=== PATIENT | male | born 1945 | race Caucasian/White ===

== ENCOUNTER 2023-08-01 09:39 | Outpatient (CLI) | payer MEDICARE, BC ==
[~2023-08-01 09:39] MED LIST: iohexol 350 MG/ML 50ML vial IV ONE; iohexol 350MG/ML 100ml bottle IV ONE
[2023-08-01 10:31] LABS: ALBUMIN 3.6 G/DL (3.4-5.0); ANION GAP 11 (8-16); BLOOD UREA NITROGEN 15 MG/DL (7-18); BUN/CREATININE RATIO 16.5 (10.0-20.0); CALCIUM 8.1 MG/DL (8.5-10.1); CHLORIDE 107 MMOL/L (99-107); CREATININE 0.91 MG/DL (0.60-1.10); GLUCOSE 111 MG/DL (70-104); POTASSIUM 4.2 MMOL/L (3.5-5.1); SODIUM 142 MMOL/L (135-145); TOTAL CARBON DIOXIDE 24.1 MMOL/L (24-32); eGFR 81 ML/MIN
== END 2023-08-01 23:59 | disposition home or self-care (01) ==
LOC: RAD 09:39
PROVIDERS: ATTEND Internal Medicine Interventional Cardiology
DX: I65.23 Occlusion and stenosis of bilateral carotid arteries (principal); K76.0 Fatty (change of) liver, not elsewhere classified; N28.1 Cyst of kidney, acquired; K44.9 Diaphragmatic hernia without obstruction or gangrene; I70.0 Atherosclerosis of aorta; I10 Essential (primary) hypertension
CPT/HCPCS: 36415; 75635; 80048; J3490; Q9967

== ENCOUNTER 2023-10-05 12:30 | Outpatient (CLI) | payer MEDICARE, BC ==
[2023-10-05 13:28] LABS: ALANINE AMINOTRANSFERASE 33 U/L (12-78); ALBUMIN 3.4 G/DL (3.4-5.0); ALBUMIN/GLOBULIN RATIO 0.9 (1.1-1.5); ALKALINE PHOSPHATASE 67 IU/L (46-116); ANION GAP 10 (8-16); ASPARTATE AMINO TRANSFERASE 19 U/L (10-37); BILIRUBIN,TOTAL 0.3 MG/DL (0.1-1.0); BLOOD UREA NITROGEN 18 MG/DL (7-18); BUN/CREATININE RATIO 16.4 (10.0-20.0); CALCIUM 8.8 MG/DL (8.5-10.1); CHLORIDE 106 MMOL/L (99-107); GLUCOSE 114 MG/DL (70-104); POTASSIUM 4.2 MMOL/L (3.5-5.1); SODIUM 141 MMOL/L (135-145); TOTAL CARBON DIOXIDE 24.9 MMOL/L (24-32); TOTAL PROTEIN 7.1 G/DL (6.4-8.2); eGFR 65 ML/MIN
== END 2023-10-05 23:59 | disposition home or self-care (01) ==
LOC: LAB 12:30
PROVIDERS: ATTEND Family Medicine
DX: E78.5 Hyperlipidemia, unspecified (principal)
CPT/HCPCS: 36415; 80053

== ENCOUNTER → 2024-04-17 | Outpatient (CLI) | payer MEDICARE, BC ==
[2024-04-17 14:07] LABS: BASOPHILS % (AUTO) 0.5 % (0-1); EOSINOPHILS # (AUTO) 0.2 X10'3 (0-0.9); EOSINOPHILS % (AUTO) 2.7 % (0-6); HEMATOCRIT 35.2 % (42.0-52.0); HEMOGLOBIN 11.5 g/dl (14.0-17.9); LYMPHOCYTES # (AUTO) 2.4 X10'3 (1.1-4.8); LYMPHOCYTES % (AUTO) 31.6 % (21-51); MEAN CORPUSCULAR HEMOGLOBIN 29.7 PG (27.0-31.0); MEAN CORPUSCULAR HGB CONC 32.7 g/dL (33.0-36.5); MEAN CORPUSCULAR VOLUME 90.9 FL (78-98); MEAN PLATELET VOLUME 6.4 FL (7.4-10.4); MONOCYTES # (AUTO) 1.1 X10'3 (0-0.9); MONOCYTES % (AUTO) 14.3 % (2-12); NEUTROPHILS # (AUTO) 3.9 X10'3 (1.8-7.7); NEUTROPHILS % (AUTO) 50.9 % (42-75); PLATELET COUNT 294 X10'3 (140-440); RED BLOOD COUNT 3.87 X10'6 (4.70-6.10); RED CELL DISTRIBUTION WIDTH 14.2 % (11.5-14.5); WHITE BLOOD COUNT 7.6 X10'3 (4.5-11.0)
[2024-04-17 14:32] LABS: ALANINE AMINOTRANSFERASE 30 U/L (12-78); ALBUMIN 3.5 G/DL (3.4-5.0); ALKALINE PHOSPHATASE 65 IU/L (46-116); ANION GAP 11 (8-16); ASPARTATE AMINO TRANSFERASE 21 U/L (10-37); BILIRUBIN,TOTAL 0.7 MG/DL (0.1-1.0); BLOOD UREA NITROGEN 20 MG/DL (7-18); BUN/CREATININE RATIO 14.8 (10.0-20.0); CALCIUM 8.7 MG/DL (8.5-10.1); CHLORIDE 107 MMOL/L (99-107); CREATININE 1.35 MG/DL (0.60-1.10); GLUCOSE 113 MG/DL (70-104); POTASSIUM 4.1 MMOL/L (3.5-5.1); SODIUM 143 MMOL/L (135-145); TOTAL CARBON DIOXIDE 25.3 MMOL/L (24-32); TOTAL PROTEIN 6.9 G/DL (6.4-8.2); eGFR 51 ML/MIN
[2024-04-17 14:42] LABS: THYROID STIMULATING HORMONE 2.19 ulU/ml (0.34-4.50)
[2024-04-19 11:14] LABS: THYROXINE (T4) 10.5 ug/dL (4.5-12.0)
== END | disposition home or self-care (01) ==
LOC: RAD 13:32
PROVIDERS: ATTEND Student in an Organized Health Care Education/Training Program
DX: R06.02 Shortness of breath (principal); G47.33 Obstructive sleep apnea (adult) (pediatric); J30.9 Allergic rhinitis, unspecified; E78.5 Hyperlipidemia, unspecified
CPT/HCPCS: 36415; 80053; 82103; 84436; 84443; 85025

== ENCOUNTER 2024-06-01 14:08 | Outpatient (CLI) | payer MEDICARE, BC ==
[2024-06-01 15:55] VITALS: PULSE 102; RESP 18; O2SAT 96
== END 2024-06-01 23:59 | disposition home or self-care (01) ==
LOC: RT 14:08
PROVIDERS: ATTEND Student in an Organized Health Care Education/Training Program
DX: J44.9 Chronic obstructive pulmonary disease, unspecified (principal)
CPT/HCPCS: 94010; 94729; 94760

== ENCOUNTER → 2024-10-26 | Outpatient (CLI) | payer MEDICARE, BC ==
[~2024-10-26] MED LIST changes: +ALBU8HFA INH; +APIX5TAB3 PO; +ASPI-1397 PO; +CARSR60C PO; +FLUT16SP26; +GUAI600T45 PO; +PANT40TA54 PO; +PRED20TA PO; +PRED50TA PO; +ROSU10TA72 PO; +ROSU40TA PO; +SALM50DI2 INH; +TIOT4MIS8; -iohexol 350 MG/ML 50ML vial IV ONE; -iohexol 350MG/ML 100ml bottle IV ONE
[2024-10-26 11:40] LABS: ALANINE AMINOTRANSFERASE 20 U/L (12-78); ALBUMIN 3.4 G/DL (3.4-5.0); ALBUMIN/GLOBULIN RATIO 1.1 (1.1-1.5); ALKALINE PHOSPHATASE 82 IU/L (46-116); ANION GAP 12 (8-16); ASPARTATE AMINO TRANSFERASE 20 U/L (10-37); BILIRUBIN,TOTAL 1.2 MG/DL (0.1-1.0); BLOOD UREA NITROGEN 33 MG/DL (7-18); CALCIUM 8.6 MG/DL (8.5-10.1); CHLORIDE 108 MMOL/L (99-107); CHOL/HDL RATIO 2.2 (0.00-4.99); CHOLESTEROL 102 MG/DL (0-200); CREATININE 1.83 MG/DL (0.60-1.10); GLUCOSE 83 MG/DL (70-104); HDL CHOLESTEROL 47 MG/DL (35-60); LDL CHOLESTEROL 51 MG/DL (50-100); POTASSIUM 3.6 MMOL/L (3.5-5.1); PRO BRAIN NATRIURETIC PEPTIDE 2953 PG/ML (0-450); SODIUM 148 MMOL/L (135-145); TOTAL CARBON DIOXIDE 27.6 MMOL/L (24-32); TOTAL PROTEIN 6.6 G/DL (6.4-8.2); TRIGLYCERIDES 42 MG/DL (20-135); eGFR 36 ML/MIN
== END | disposition home or self-care (01) ==
LOC: LAB 10:40
PROVIDERS: ATTEND Family Medicine
DX: I11.0 Hypertensive heart disease with heart failure (principal); E78.5 Hyperlipidemia, unspecified; I50.9 Heart failure, unspecified
CPT/HCPCS: 36415; 80053; 80061; 83695; 83880

== ENCOUNTER 2024-11-12 11:57 | Inpatient (IN) | payer MEDICARE, BC ==
[~2024-11-12] VITALS: Ht 175.3 cm; Wt 94.1 kg
--- NOTE | 2024-11-12 12:34 | ELECTROCARDIOGRAPH REPORT ---
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
--- NOTE | 2024-11-12 12:57 | RADIOLOGY REPORT ---
CHEST RADIOGRAPH Indication: CP Technique: Single frontal view of the chest was obtained COMPARISON: None FINDINGS: The cardiac silhouette is enlarged. The lungs demonstrate bilateral patchy airspace opacities. The pu lmonary vasculature is prominent. Small to moderate bilateral pleural effusions. Elevation right hem idiaphragm. Aortic atherosclerotic disease.. There is no pneumothorax. IMPRESSION: 1. As above
[2024-11-12 13:19] LABS: BASOPHILS # (AUTO) 0.1 X10'3 (0-0.2); BASOPHILS % (AUTO) 0.7 % (0-1); EOSINOPHILS # (AUTO) 0.1 X10'3 (0-0.9); EOSINOPHILS % (AUTO) 1.2 % (0-6); HEMATOCRIT 32.3 % (42.0-52.0); HEMOGLOBIN 10.1 g/dl (14.0-17.9); LYMPHOCYTES # (AUTO) 1.5 X10'3 (1.1-4.8); LYMPHOCYTES % (AUTO) 21.5 % (21-51); MEAN CORPUSCULAR HEMOGLOBIN 25.4 PG (27.0-31.0); MEAN CORPUSCULAR HGB CONC 31.3 g/dL (33.0-36.5); MEAN CORPUSCULAR VOLUME 81.2 FL (78-98); MEAN PLATELET VOLUME 8.1 FL (7.4-10.4); MONOCYTES # (AUTO) 1.1 X10'3 (0-0.9); MONOCYTES % (AUTO) 15.9 % (2-12); NEUTROPHILS # (AUTO) 4.4 X10'3 (1.8-7.7); NEUTROPHILS % (AUTO) 60.7 % (42-75); PLATELET COUNT 202 X10'3 (140-440); RED BLOOD COUNT 3.97 X10'6 (4.70-6.10); RED CELL DISTRIBUTION WIDTH 18.4 % (11.5-14.5); WHITE BLOOD COUNT 7.2 X10'3 (4.5-11.0)
[2024-11-12 13:37] LABS: ALBUMIN 3.3 G/DL (3.4-5.0); ANION GAP 12 (8-16); BLOOD UREA NITROGEN 32 MG/DL (7-18); BUN/CREATININE RATIO 16.4 (10.0-20.0); CALCIUM 8.7 MG/DL (8.5-10.1); CHLORIDE 107 MMOL/L (99-107); CREATININE 1.95 MG/DL (0.60-1.10); GLUCOSE 96 MG/DL (70-104); PRO BRAIN NATRIURETIC PEPTIDE 3552 PG/ML (0-450); SODIUM 145 MMOL/L (135-145); TOTAL CARBON DIOXIDE 26.3 MMOL/L (24-32); eCRCL 31 ML/MIN; eGFR 33 ML/MIN
[2024-11-12 13:43] LABS: POTASSIUM 4.3 MMOL/L (3.5-5.1)
--- NOTE | 2024-11-12 15:10 | Physician Documentation ---
History of Present Illness ~ Chief Complaint: Edema Stated Complaint: LEG SWELLING Time Seen by MD: 14:29 Mode of Arrival: Ambulatory HPI 79-year-old male presents to the ED with a complaint of increased lower extremity swelling over the last month.. Patient has a history of a dysfunctional heart valve an ablation due to atrial fibrillation and a history of congestive heart failure. Patient reports that his legs have begun to weep fluid. Reports pain and increased shortness of breath. Additionally patient states that he was a patient at [facility] for approximately six weeks for previous complications Day of Onset: Nov 12, 2024 Medication Reconciliation Allergies: Coded Allergies: No Known Allergies (Unverified , 06/11/24) Scheduled Apixaban (Eliquis), 5 MG PO BID Aspirin (Aspirin EC), 1 TAB PO DAILY, (Reported) Diltiazem Hcl (Cardizem Sr), 120 MG PO Q12H Guaifenesin (Mucinex), 600 MG PO Q12H Pantoprazole Sodium (Pantoprazole Sodium), 1 TAB PO DAILY, (Reported) Prednisone (Prednisone), 1 TAB PO DAILY Prednisone* (Prednisone*), 1 TAB PO Q12H, (Reported) Rosuvastatin Calcium (Rosuvastatin Calcium), 1 TAB PO HS, (Reported) Rosuvastatin Calcium* (Crestor*), 1 TAB PO DAILY, (Reported) Salmeterol Xinafoate* (Serevent Diskus*), 1 PUFFS INH Q12H, (Reported) Scheduled PRN albuterol inhaler (Pro-Air Inhaler), 2 PUFFS INH Q4HPRN PRN for wheezing, (Reported) Miscellaneous Medications Fluticasone Propionate (Fluticasone Propionate), (Reported) Tiotropium Br/Olodaterol HCl (Stiolto Respimat Inhaler (10)), (Reported) Review of Systems All Other Systems at this time: Reviewed and Negative ROS As stated above in the HPI, otherwise all systems are reviewed and negative. Physical Exam Vital Signs: Temperature: 98.6, Source: Oral, Heart Rate: 87, Respiratory Rate: 12, BP: 144/82, Pulse Oximetry: 95, Weight: 98.500 Oxygen Flow Rate: 0 General Appearance General: Alert, no apparent distress. Respiratory: Lungs clear, no respiratory distress. Chest: No accessory muscle use. Cardiovascular: Apical murmur Gastrointestinal: Soft, nontender, nondistended. Bowels sounds present. Extremities: 3+ pitting edema with notable weeping. No sign of erythema or warmth Neurologic: Oriented x4. Psychiatric: Normal mood and affect. Skin: Normal color, warm and dry. No edema, no ecchymosis. Progress Results/Orders Results/Orders Orders - [place] SHEPARD NP Page Hospitalist (11/12/24 ) Completed Orders - [place] SHEPARD EDITOR CONTINUITY AND SCRIPT Furosemide Inj (Lasix Inj) (11/12/24 15:35) Medications Received in ER Medications (Trade) Dose Ordered Sig/Vahe Route PRN Reason Start Time Stop Time Status Last Admin Dose Admin (Lasix inj) 60 mg ONCE ONCE IV 11/12/24 15:35 11/12/24 15:36 DC 11/12/24 15:56 60 MG Vital Signs 11/12/24 11/12/24 11/12/24 11/12/24 12:22 14:12 14:41 14:59 Temp 98.6 98.6 Pulse 91 74 87 Resp 16 18 17 12 B/P (MAP) 116/77 131/92 (105) 144/82 (102) Pulse Ox 95 95 95 O2 Flow Rate 0 0 0 Laboratory Tests Test 11/12/24 12:38 11/12/24 14:20 White Blood Count 7.2 Red Blood Count 3.97 L Hemoglobin 10.1 L Hematocrit 32.3 L Mean Corpuscular Volume 81.2 Mean Corpuscular Hemoglobin 25.4 L Mean Corpuscular Hemoglobin Concent 31.3 L Red Cell Distribution Width 18.4 H Platelet Count 202 Mean Platelet Volume 8.1 Neutrophils (%) (Auto) 60.7 Lymphocytes (%) (Auto) 21.5 Monocytes (%) (Auto) 15.9 H Eosinophils (%) (Auto) 1.2 Basophils (%) (Auto) 0.7 Neutrophils # (Auto) 4.4 Lymphocytes # (Auto) 1.5 Monocytes # (Auto) 1.1 H Eosinophils # (Auto) 0.1 Basophils # (Auto) 0.1 CBC Comment Sodium Level 145 Potassium Level 4.3 Chloride Level 107 Carbon Dioxide Level 26.3 Anion Gap 12 Blood Urea Nitrogen 32 H Creatinine 1.95 H Estimated GFR/1.73 m2 33 BUN/Creatinine Ratio 16.4 Glucose Level 96 Hemoglobin A1c 5.8 Calcium Level 8.7 Troponin I High Sensitivity 10 13 Pro-B-Type Natriuretic Peptide 3552 H Albumin 3.3 L Chemistry Comments Troponin I High Sens Percent Delta 30 Troponin I Hi Sens Absolute Change 3 Medical Decision Making Findings This is a patient although currently not in acute distress, presents with [id number] bilateral lower extremity edema which is abnormal for the patient. In addition, he has a apical heart murmur which may require cardiology consultation as I suspect it may be contributing to the increased fluid buildup in his lower extremities and lungs. My interpretation of the chest x-ray there is a notable vascular congestion Differential Dx:Considerations: Include: eric's cyst, Cancer, Cellulitis, Congestive heart failure, Compartment syndrome, Contusion, Deep venous thrombosis, Liver failure, Malnutrition, Muscle spasm, Plantaris rupture, Popliteal vein aneurysm, Renal faliure, Strain, Superfic thrombophlebitis, Venous insufficiency, Other Departure Disposition: ADMITTED INPATIENT Impression: Primary Impression: Acute on chronic diastolic heart failure Additional Impressions: Edema of lower extremity Murmur, cardiac Condition: Stable Referrals: NO PRIMARY CARE PROVIDER (PCP) Signature Scribe Signature: hy Attestation: The note accurately reflects work and decisions made by me.Ky Lantigua NP 11/12/24 19:01 [place] SHEPARD NP Nov 12, 2024 15:10
[2024-11-12] MEDS ORDERED: potassium Cl 40MEQ/1/2NS 520ml 520 ML IV PRN (15:35)
[2024-11-12] MEDS ORDERED: magnesium sulf-water 4G/100mL 100 ML IV PRN (15:35)
[2024-11-12] MEDS ORDERED: mag hydrox/Alum hydrox/simeth 30ml oral suspension PO PRN (15:35)
[2024-11-12] MEDS ORDERED: magnesium Cl slow-release 64mg tablet PO PRN (15:35)
[2024-11-12] MEDS ORDERED: HYDROcodone/acetaminophen 5mg/325mg tablet PO PRN (15:35)
[2024-11-12] MEDS ORDERED: ondansetron/PF 4mg/2ml inj IV PRN (15:35)
[2024-11-12] MEDS ORDERED: potassium Cl 20 mEq SR tablet PO PRN (15:35)
[2024-11-12] MEDS ORDERED: acetaminophen 325mg tablet PO PRN ×2 (15:35)
[2024-11-12] MEDS ORDERED: magnesium sulf-water 2g/50mL 50 ML IV PRN (15:35)
[2024-11-12] MEDS: furosemide 10 MG/1 ML 10ml inj IV ONE (15:56)
[2024-11-12 16:29] LABS: BILIRUBIN,URINE NEGATIVE (Neg); CLARITY,URINE CLEAR (Clear); COLOR,URINE YELLOW (Yellow); GLUCOSE, URINE NEGATIVE (Neg); KETONES,URINE NEGATIVE (Neg); LEUKOCYTE ESTERASE ,URINE NEGATIVE (Neg); NITRITES, URINE NEGATIVE (Neg); OCCULT BLOOD,URINE NEGATIVE (Neg); PROTEIN,URINE NEGATIVE (Neg); UROBILINOGEN,URINE 0.2 E.U/dL (0.2-1.0)
[2024-11-12 16:38] LABS: UA COLLECTION TYPE VOIDED
[2024-11-12] MEDS: INSULIN LISPRO 100 UNIT/ML INSULN.PEN MULTI-DOSE SQ SCH ×2 (17:00→18:00)
[2024-11-12] MEDS ORDERED: glucagon, human recombinant 1mg kit SUBCUT PRN (17:00)
[2024-11-12] MEDS ORDERED: dextrose 50%-water 50ml dispensing syringe IV PRN ×2 (17:00)
[2024-11-12] MEDS ORDERED: DEXTROSE 15 GM of carb/4 tabs (each vial/BOTTLE has 4 tablets) PO PRN ×2 (17:00)
--- NOTE | 2024-11-12 17:36 | HISTORY AND PHYSICAL-Residence ---
History & Physical Providers to CC Resident Creating Document: SOPHIE DANIELLE RES ~ History of Present Illness Reason for Admit\Complaint: CHF exacerbation History of Present Illness 79-year-old male with history of AFib status post ablation two months ago, diabetes type 2, CHF preserved EF presented to the ED with chief complaints of worsening bilateral lower extremity edema for the past three weeks. He has been trying to use compression socks with minimal relief. 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 Also complaining of pain in the bilateral lower extremity. Denies significant chest pains, diaphoresis, fevers/chills, nasal congestion, expectoration, palpitations, or weight loss/weight gain. Denies orthopnea. No bowel or bladder abnormalities. Quit smoking 44 years ago, smoked for around 16 years. Rarely drinks alcohol. No recreational drug use. Lives with his and is independent in daily activities. Discussed advanced care directives and wishes to be a full code. Allergies: Coded Allergies: No Known Allergies (Unverified , 06/11/24) Home Medications Home Medications Active Mucinex (Guaifenesin) 600 Mg Tablet.sa 600 Mg PO Q12H 5 Days Prednisone 50 Mg Tablet 1 Tab PO DAILY 5 Days Cardizem Sr (Diltiazem Hcl) 60 Mg Cap.sr.12h 120 Mg PO Q12H 30 Days Eliquis (Apixaban) 5 Mg Tablet 5 Mg PO BID 30 Days Reported Prednisone* (Prednisone) 20 Mg Tablet 1 Tab PO Q12H 5 Days Stiolto Respimat Inhaler (10) (Tiotropium Br/Olodaterol HCl) 2.5 Mcg-2.5 Mcg/Actuation Mist.inhal Pro-Air Inhaler (Albuterol) 8.5 Gm Inhaler 2 Puffs INH Q4HPRN PRN 30 Days Serevent Diskus* (Salmeterol Xinafoate) 50 Mcg Disk.w.dev 1 Puffs INH Q12H 30 Days Crestor* (Rosuvastatin Calcium) 40 Mg Tablet 1 Tab PO DAILY Fluticasone Propionate 50 Mcg/Actuation [place].susp Pantoprazole Sodium 40 Mg Tablet.dr 1 Tab PO DAILY Aspirin EC (Aspirin) 81 Mg Tablet.dr 1 Tab PO DAILY Rosuvastatin Calcium 10 Mg Tablet 1 Tab PO HS Past Medical History Past Medical History CHF preserved EF AFib status post ablation Diabetes type 2 ROS All Other Systems: Reviewed and Negative ROS Reviewed in full. All negative except for pertinent positive HPI. Exam Vitals: Vital Signs Date Time Temp Pulse Resp B/P (MAP) Pulse Ox O2 Delivery O2 Flow Rate FiO2 11/12/24 16:02 98.6 95 13 131/86 (101) 96 0 General: General: Awake and Alert, no acute distress. HEENT: Conjunctiva pink, Sclera clear, Mucus Membranes moist. Neck: Supple without masses and tenderness. Resp: Unlabored. Fine basal crackles on the left.. Heart: Irregularly irregular, variable S1, no rub, murmur or gallop. Abdomen: Soft and non tender no organomegaly. Normal bowel sounds x4 quadrant normoactive. No guarding or rigidity. Extremities: Bilateral lower extremity edema 2+. Bilateral lower extremity moist. 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 Skin: Bilateral lower extremity moist to touch from fluid coming out of the wound. Diagnostic Data Last Recorded Lab Results: 11/12/24 1238 11/12/24 1238 Advance Care Planning Advanced Care plannin - 30 Minutes Additional Plan 79-year-old male with history of AFib status post ablation two months ago, diabetes type 2, CHF preserved EF presented to the ED with chief complaints of worsening bilateral lower extremity edema for the past three weeks. Acute on chronic CHF with preserved EF ACC stage C NYHA class II, wet and moist Elevated BNP CXR: Pulmonary vascular congestion and small pleural effusion on the right Has bilateral lower extremity edema 2+ Was given Lasix 60 IV x1 in the ED Continue Lasix 40 IV daily Strict Is&Os Low-sodium diet Fluid restriction 1-1.2 L per day CKD stage III Monitor BMP History of AFib status post ablation currently rate controlled History of diabetes on hyper hypoglycemia protocol Quit smoking 44 years ago (smoked for around 16 years) breathing treatments p.r.n. Awaiting med rec Code Status: Full code DVT prophylaxis: Eliquis after med rec is done Analgesia/sedation: None Line/tube: PIV GI prophylaxis: None Nutrition: Carb control Prognosis: Guarded Disposition: Continue medical management. Sophie Danielle MD. IM Resident PGY-2 Date of Service: Nov 12, 2024 Billing Provider: MAURICIO VARGAS MD Common Visit Codes: 02150-[id number] INP/OBS CARE (HIGH) Secondary Visit Codes: [id number] CARE PLAN 30 MINUTES SOPHIE DANIELLE, RES Nov 12, 2024 17:36 MAURICIO VARGAS MD Nov 14, 2024 08:08
[2024-11-12] MEDS ORDERED: ipratropium/albuterol 3ml nebule NEB PRN (18:05)
[2024-11-12 18:15] LABS: HEMOGLOBIN A1C 5.8 % (4.5-6.2)
[2024-11-12 19:39] VITALS: PULSE 94; RESP 20; O2SAT 95
[2024-11-12] MEDS: K and/or MAG REPLACEMENT MC SCH (19:55)
[2024-11-12] MEDS ORDERED: METO-395 PO (19:59)
[2024-11-12] MEDS ORDERED: LANTUS SQ (19:59)
[2024-11-12] MEDS ORDERED: BUME1TAB8 PO (19:59)
[2024-11-12] MEDS: insulin glargine (Lantus) pen - multi-dose SQ SCH (21:51)
[2024-11-12 22:44] VITALS: BP 122/80; PULSE 76; RESP 13; TEMP 97.6; O2SAT 93
[2024-11-13] VITALS (8 sets, daily range): BP systolic 111–122; BP diastolic 59–84; PULSE 75–85; RESP 15–22; TEMP 97.3–98.4; O2SAT 92–98
[2024-11-13 06:55] LABS: BASOPHILS % (AUTO) 0.8 % (0-1); EOSINOPHILS # (AUTO) 0.1 X10'3 (0-0.9); HEMATOCRIT 31.5 % (42.0-52.0); LYMPHOCYTES # (AUTO) 1.6 X10'3 (1.1-4.8); LYMPHOCYTES % (AUTO) 25.3 % (21-51); MEAN CORPUSCULAR HEMOGLOBIN 25.1 PG (27.0-31.0); MEAN CORPUSCULAR HGB CONC 31.7 g/dL (33.0-36.5); MEAN CORPUSCULAR VOLUME 79.4 FL (78-98); MEAN PLATELET VOLUME 7.7 FL (7.4-10.4); MONOCYTES # (AUTO) 0.9 X10'3 (0-0.9); MONOCYTES % (AUTO) 15.1 % (2-12); NEUTROPHILS # (AUTO) 3.5 X10'3 (1.8-7.7); NEUTROPHILS % (AUTO) 56.8 % (42-75); PLATELET COUNT 174 X10'3 (140-440); RED BLOOD COUNT 3.97 X10'6 (4.70-6.10); RED CELL DISTRIBUTION WIDTH 17.8 % (11.5-14.5); WHITE BLOOD COUNT 6.1 X10'3 (4.5-11.0)
[2024-11-13 07:32] LABS: ALANINE AMINOTRANSFERASE 18 U/L (12-78); ALBUMIN 3.2 G/DL (3.4-5.0); ALKALINE PHOSPHATASE 97 IU/L (46-116); ANION GAP 13 (8-16); ASPARTATE AMINO TRANSFERASE 25 U/L (10-37); BILIRUBIN,TOTAL 1.5 MG/DL (0.1-1.0); BLOOD UREA NITROGEN 29 MG/DL (7-18); BUN/CREATININE RATIO 15.4 (10.0-20.0); CALCIUM 8.6 MG/DL (8.5-10.1); CHLORIDE 107 MMOL/L (99-107); CREATININE 1.88 MG/DL (0.60-1.10); GLUCOSE 90 MG/DL (70-104); MAGNESIUM 2.3 MG/DL (1.5-2.4); PHOSPHORUS 3.8 MG/DL (2.3-4.5); POTASSIUM 3.3 MMOL/L (3.5-5.1); SODIUM 146 MMOL/L (135-145); TOTAL CARBON DIOXIDE 26.5 MMOL/L (24-32); TOTAL PROTEIN 6.4 G/DL (6.4-8.2); eCRCL 32 ML/MIN; eGFR 35 ML/MIN
[2024-11-13] MEDS ORDERED: metoprolol succinate 25mg (24-HOUR) SR. Tablet PO SCH (08:00)
[2024-11-13] MEDS: furosemide 40mg/4ml inj IV SCH (08:20)
[2024-11-13] MEDS: apixaban 5mg tablet PO SCH (08:20)
[2024-11-13] MEDS: pantoprazole 40mg Tablet.DR PO SCH (08:20)
[2024-11-13] MEDS: metoprolol succinate 25mg (24-HOUR) SR. Tablet PO SCH (08:21)
[2024-11-13] MEDS: potassium Cl 20 mEq SR tablet PO PRN (10:54)
[2024-11-13] MEDS ORDERED: ROSU40TA89 PO (10:57)
--- NOTE | 2024-11-13 15:37 | PROGRESS NOTE- Residence ---
Progress Note - Resident Providers to CC Resident Creating Document: SOPHIE DANIELLE RES ~ Antibiotic Timeout Antibiotic Ordered?: No Subjective Patient seen and examined at bedside. Lower extremity edema better today. Continue IV Lasix. No new concerns or complaints. Objective Vital Signs Date Time Temp Pulse Resp B/P (MAP) Pulse Ox O2 Delivery O2 Flow Rate FiO2 11/13/24 11:19 97.7 83 16 112/71 (85) 98 Room Air 11/12/24 22:44 0.0 21 Result Diagram: 11/13/24 0608 11/13/24 06 General: Awake and Alert, no acute distress. HEENT: Conjunctiva pink, Sclera clear, Mucus Membranes moist. Neck: Supple without masses and tenderness. Resp: Unlabored. Fine basal crackles on the left.. Heart: Irregularly irregular, variable S1, no rub, murmur or gallop. Abdomen: Soft and non tender no organomegaly. Normal bowel sounds x4 quadrant normoactive. No guarding or rigidity. Extremities: Bilateral lower extremity edema 2+. Bilateral lower extremity dry STOCK COUNTER: No gross motor or sensory abnormalities. Skin: Warm and dry Assessment Assessment 79-year-old male with history of AFib status post ablation two months ago, diabetes type 2, CHF preserved EF presented to the ED with chief complaints of worsening bilateral lower extremity edema for the past three weeks. Plan Plan Acute on chronic CHF with preserved EF ACC stage C NYHA class II, wet and moist Elevated BNP CXR: Pulmonary vascular congestion and small pleural effusion on the right Has bilateral lower extremity edema 2+ Was given Lasix 60 IV x1 in the ED Continue Lasix 40 IV daily Strict Is&Os Low-sodium diet Fluid restriction 1-1.2 L per day 11/13/2024 Continue to monitor I's and os, output -1650 so far Continue IV Lasix CKD stage III Monitor BMP History of AFib status post ablation currently rate controlled History of diabetes on hyper hypoglycemia protocol Quit smoking 44 years ago (smoked for around 16 years) breathing treatments p.r.n. Code Status: Full code DVT prophylaxis: Eliquis Analgesia/sedation: None Line/tube: PIV GI prophylaxis: None Nutrition: Carb control Prognosis: Guarded Disposition: Continue medical management. Sophie Danielle MD. IM Resident PGY-2 Date of Service: Nov 13, 2024 Billing Provider: MAURICIO VARGAS MD Common Visit Codes: [id number] INP/OBS CARE(HIGH) SOPHIE DANIELLE, RES Nov 13, 2024 15:37 MAURICIO VARGAS MD Nov 14, 2024 08:09
[2024-11-14 02:00] VITALS: BP 112/70; PULSE 77; RESP 24; TEMP 97.7; O2SAT 98
[2024-11-14 03:13] VITALS: PULSE 70; RESP 18; O2SAT 95
[2024-11-14 06:00] VITALS: BP 115/75; PULSE 85; RESP 17; TEMP 97.6; O2SAT 97
[2024-11-14 06:42] LABS: BASOPHILS % (AUTO) 0.7 % (0-1); EOSINOPHILS # (AUTO) 0.1 X10'3 (0-0.9); EOSINOPHILS % (AUTO) 1.9 % (0-6); HEMATOCRIT 32.5 % (42.0-52.0); HEMOGLOBIN 10.3 g/dl (14.0-17.9); LYMPHOCYTES # (AUTO) 1.9 X10'3 (1.1-4.8); LYMPHOCYTES % (AUTO) 28.3 % (21-51); MEAN CORPUSCULAR HEMOGLOBIN 25.3 PG (27.0-31.0); MEAN CORPUSCULAR HGB CONC 31.8 g/dL (33.0-36.5); MEAN CORPUSCULAR VOLUME 79.8 FL (78-98); MEAN PLATELET VOLUME 7.5 FL (7.4-10.4); MONOCYTES # (AUTO) 1.1 X10'3 (0-0.9); MONOCYTES % (AUTO) 15.3 % (2-12); NEUTROPHILS # (AUTO) 3.7 X10'3 (1.8-7.7); NEUTROPHILS % (AUTO) 53.8 % (42-75); PLATELET COUNT 180 X10'3 (140-440); RED BLOOD COUNT 4.07 X10'6 (4.70-6.10); WHITE BLOOD COUNT 6.9 X10'3 (4.5-11.0)
[2024-11-14 07:12] LABS: HBSAG SCREEN Negative (Negative); HEP B CORE AB, IGM Negative (Negative); HEP B CORE AB, TOT Negative (Negative)
[2024-11-14 07:22] LABS: ALANINE AMINOTRANSFERASE 20 U/L (12-78); ALBUMIN 3.2 G/DL (3.4-5.0); ALKALINE PHOSPHATASE 102 IU/L (46-116); ANION GAP 11 (8-16); ASPARTATE AMINO TRANSFERASE 24 U/L (10-37); BILIRUBIN,TOTAL 1.3 MG/DL (0.1-1.0); BLOOD UREA NITROGEN 31 MG/DL (7-18); BUN/CREATININE RATIO 17.2 (10.0-20.0); CALCIUM 8.9 MG/DL (8.5-10.1); CHLORIDE 108 MMOL/L (99-107); GLUCOSE 100 MG/DL (70-104); MAGNESIUM 2.4 MG/DL (1.5-2.4); POTASSIUM 3.9 MMOL/L (3.5-5.1); SODIUM 146 MMOL/L (135-145); TOTAL CARBON DIOXIDE 26.6 MMOL/L (24-32); TOTAL PROTEIN 6.5 G/DL (6.4-8.2); eCRCL 33 ML/MIN; eGFR 37 ML/MIN
[2024-11-14 08:00] VITALS: RESP 18; O2SAT 97
[2024-11-14] MEDS ORDERED: BUME1TAB9 PO (10:13)
[2024-11-14 11:00] VITALS: BP 104/69; PULSE 85; RESP 17; TEMP 97.6; O2SAT 94
--- NOTE | 2024-11-14 17:26 | CARDIOLOGY REPORT ---
APPROVED REPORT EXAM: Comprehensive 2D, Doppler, and color-flow Echocardiogram. Patient Location: 3[address] Heart Rate: 88-128 bpm Rhythm: SINUS Indications SHORTNESS OF BREATH Wire Bender Hand: NONE Previous echo: [facility] 06-15-24 EF 65-70%, RVSP 67, Joby, mMR, modTR 2D Dimensions RVDd 4.8 cm IVSd 1.1 (0.7-1.1cm) LVDd 4.6 cm PWd 1.0 (0.7-1.1cm) IVSs 1.4 (0.8-1.2cm) LVDs 3.1 (2.5-4.0cm) PWs 1.4 (0.8-1.2cm) LVOT Diameter 2.02 (1.8-2.4cm) LVEF(%) 62.3 (>50%) Ao Asc Diam.3.39 cm IVC 17.20 mmFS (%) 33.5 % SV 61.7 ml CO 10.5 L/min M-Mode Dimensions Left Atrium(MM) 4.65 (2.5-4.0cm) Aortic Root 3.13 (2.2-3.7cm) Aortic Cusp Exc 2.00 (1.5-2.0cm) Aortic Valve AoV Peak Gregg. 122.7 cm/s AoV VTI 19.3 cm AO Peak GR. 6.0 mmHg AO Mean GR. 3 mmHg LVOT VTI 14.34 cm LVOT Peak Gregg. 90.1 cm/s REJI(VTI)/BSA 2.38 cm2/m2 REJI (VTI) 2.38 cm2 Mitral Valve MV Peak Gr. 16 mmHg MV PHT 72 ms MVA (PHT) 3.06 cm2 MV SDaj911.6 cm/s Tricuspid Valve TR P. Velocity 395 cm/s RAP ESTIMATE 10 mmHg TR Peak Gr. 62 mmHg RVSP 72 mmHg LEFT VENTRICLE Normal LV size and wall thickness. Overall systolic function is normal. LVEF is 60-65%. RIGHT VENTRICLE RV is moderately dilated in size with normal function. RVSP is estimated at 72 mmHg. ATRIA Left atrium is mildly dilated. AORTIC VALVE Trileaflet AV appears mildly sclerotic without stenosis. Trace insufficiency. MITRAL VALVE Moderate MV annular calcification without stenosis. Moderate regurgitation. TRICUSPID VALVE TV appears structurally normal with moderate multijet regurgitation. PULMONIC VALVE Normal PV without stenosis, physiologic insufficiency. GREAT VESSELS The aortic root is normal in size. IVC is normal in size and collapses greater than 50% with inspirat ion. PERICARDIUM Normal pericardium. No effusion. Other Information Study Quality: Adequate, no SSN window Conclusion Normal LV size and wall thickness. Overall systolic function is normal. LVEF is 60-65%. RV is moderately dilated in size with normal function. RVSP is estimated at 72 mmHg. Left atrium is mildly dilated. Trileaflet AV appears mildly sclerotic without stenosis. Trace insufficiency. Moderate MV annular calcification without stenosis. Moderate regurgitation. TV appears structurally normal with moderate multijet regurgitation. Normal pericardium. No effusion.
--- NOTE | 2024-11-14 18:28 | DISCHARGE SUMMARY-Residence ---
Discharge Summary Providers to CC Resident Creating Document: MERRICK DANIELLE RES ~ Discharge Summary Admission Diagnosis: CHF Hospital Course DATE OF ADMISSION: 11/12/2024 DATE OF DISCHARGE: 11/14/2024 Hospital course same as mentioned discharge summary. Discharge Diagnosis\Comment: Acute on chronic CHF with preserved EF ACC stage C NYHA class II, wet and moist CKD stage 3 History of AFib status post ablation currently rate controlled History of diabetes on hyper hypoglycemia protocol Quit smoking 44 years ago (smoked for around 16 years) breathing treatments p.r.n. Operations\Procedures: None Consultants: None Complications: None Condition on DC: Stable New Medications: Bumetanide (Bumetanide) 1 Mg Tablet 3 MG PO DAILY for 30 Days, #90 TAB 0 Refills take 1 mg tab in the morning and 2 mg (2 tabs) in the evening daily Continued Medications: Apixaban (Eliquis) 5 Mg Tablet 5 MG PO BID for 30 Days, #60 TAB Fluticasone Propionate (Fluticasone Propionate) 50 Mcg/Actuation [place].susp Insulin Glargine,Hum.rec.anlog* (Lantus*) 100 Unit/1 Ml Vial SQ Metoprolol Succinate (Metoprolol Succinate) 25 Mg Tab.sr.24h 1 TAB PO DAILY Pantoprazole Sodium (Pantoprazole Sodium) 40 Mg Tablet.dr 1 TAB PO DAILY Rosuvastatin Calcium (Rosuvastatin Calcium) 40 Mg Tablet 1 TAB PO DAILY Discharge Summary: As per HPI: 79-year-old male with history of AFib status post ablation two months ago, diabetes type 2, CHF preserved EF presented to the ED with chief complaints of worsening bilateral lower extremity edema for the past three weeks. He has been trying to use compression socks with minimal relief. 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 Also complaining of pain in the bilateral lower extremity. Denies significant chest pains, diaphoresis, fevers/chills, nasal congestion, expectoration, palpitations, or weight loss/weight gain. Denies orthopnea. No bowel or bladder abnormalities. Quit smoking 44 years ago, smoked for around 16 years. Rarely drinks alcohol. No recreational drug use. Lives with his and is independent in daily activities. Discussed advanced care directives and wishes to be a full code. Hospital course: On further evaluation in ED elevated BNP, CXR pulmonary vascular congestion and small pleural effusion on the right. He had bilateral lower extremity edema 2+. Was given Lasix 60 x 1 in the ED. Lasix 40 IV daily were continued. Strict Is&Os to maintain a low-sodium diet. Fluid restriction 1-1.2 L per day. He had good output with the Lasix. He was at CKD stage 3 BMP was monitored. His bilateral lower extremity edema improved, he is able to walk around and clinically doing well. Echo was done which showed an EF of 60-65%. He has history of AFib home medications were continued has been rate controlled. He has a history of diabetes as placed on the hypoglycemia protocol. His hospital course is uncomplicated he is hemodynamically stable on the day of discharge and her physical exam is as follows: General: Awake and Alert, no acute distress. HEENT: Conjunctiva pink, Sclera clear, Mucus Membranes moist. Neck: Supple without masses and tenderness. Resp: Unlabored. Fine basal crackles on the left.. Heart: Irregularly irregular, variable S1, no rub, murmur or gallop. Abdomen: Soft and non tender no organomegaly. Normal bowel sounds x4 quadrant normoactive. No guarding or rigidity. Extremities: Bilateral lower extremity edema. 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 Skin: Warm and dry Discharge medications can be found above. Patient is being discharged with the following advice: Follow up with PCP within a week. Take Bumex 1 mg in he am and 2 mg (2 tabs) in the pm daily. Restricted sodium diet, 1-1.2 lt of fluids a day. Elevate legs while sleeping. If condition worsens call 911 or go to the nearest er immediately. Laboratory Tests Test 11/12/24 18:59 11/12/24 21:33 11/13/24 06:08 11/13/24 12:05 Glucometer 138 mg/dl 144 mg/dl 121 mg/dl White Blood Count 6.1 X10'3 Red Blood Count 3.97 X10'6 Hemoglobin 10.0 g/dl Hematocrit 31.5 % Mean Corpuscular Volume 79.4 FL Mean Corpuscular Hemoglobin 25.1 PG Mean Corpuscular Hemoglobin Concent 31.7 g/dL Red Cell Distribution Width 17.8 % Platelet Count 174 X10'3 Mean Platelet Volume 7.7 FL Neutrophils (%) (Auto) 56.8 % Lymphocytes (%) (Auto) 25.3 % Monocytes (%) (Auto) 15.1 % Eosinophils (%) (Auto) 2.0 % Basophils (%) (Auto) 0.8 % Neutrophils # (Auto) 3.5 X10'3 Lymphocytes # (Auto) 1.6 X10'3 Monocytes # (Auto) 0.9 X10'3 Eosinophils # (Auto) 0.1 X10'3 Basophils # (Auto) 0.0 X10'3 CBC Comment Sodium Level 146 MMOL/L Potassium Level 3.3 MMOL/L Chloride Level 107 MMOL/L Carbon Dioxide Level 26.5 MMOL/L Anion Gap 13 Blood Urea Nitrogen 29 MG/DL Creatinine 1.88 MG/DL Estimated GFR/1.73 m2 35 ML/MIN BUN/Creatinine Ratio 15.4 Glucose Level 90 MG/DL Calcium Level 8.6 MG/DL Phosphorus Level 3.8 MG/DL Magnesium Level 2.3 MG/DL Total Bilirubin 1.5 MG/DL Aspartate Amino Transf (AST/SGOT) 25 U/L Alanine Aminotransferase (ALT/SGPT) 18 U/L Alkaline Phosphatase 97 IU/L Total Protein 6.4 G/DL Albumin 3.2 G/DL Globulin 3.2 G/DL Albumin/Globulin Ratio 1.0 Chemistry Comments Hepatitis B Surface Antigen Negative Hepatitis B Core Total Antibody Negative Hepatitis B Core IgM Antibody Negative Test 11/13/24 20:03 11/14/24 06:26 11/14/24 07:45 Glucometer 172 mg/dl 105 mg/dl White Blood Count 6.9 X10'3 Red Blood Count 4.07 X10'6 Hemoglobin 10.3 g/dl Hematocrit 32.5 % Mean Corpuscular Volume 79.8 FL Mean Corpuscular Hemoglobin 25.3 PG Mean Corpuscular Hemoglobin Concent 31.8 g/dL Red Cell Distribution Width 18.0 % Platelet Count 180 X10'3 Mean Platelet Volume 7.5 FL Neutrophils (%) (Auto) 53.8 % Lymphocytes (%) (Auto) 28.3 % Monocytes (%) (Auto) 15.3 % Eosinophils (%) (Auto) 1.9 % Basophils (%) (Auto) 0.7 % Neutrophils # (Auto) 3.7 X10'3 Lymphocytes # (Auto) 1.9 X10'3 Monocytes # (Auto) 1.1 X10'3 Eosinophils # (Auto) 0.1 X10'3 Basophils # (Auto) 0.0 X10'3 CBC Comment Sodium Level 146 MMOL/L Potassium Level 3.9 MMOL/L Chloride Level 108 MMOL/L Carbon Dioxide Level 26.6 MMOL/L Anion Gap 11 Blood Urea Nitrogen 31 MG/DL Creatinine 1.80 MG/DL Estimated GFR/1.73 m2 37 ML/MIN BUN/Creatinine Ratio 17.2 Glucose Level 100 MG/DL Calcium Level 8.9 MG/DL Phosphorus Level 4.0 MG/DL Magnesium Level 2.4 MG/DL Total Bilirubin 1.3 MG/DL Aspartate Amino Transf (AST/SGOT) 24 U/L Alanine Aminotransferase (ALT/SGPT) 20 U/L Alkaline Phosphatase 102 IU/L Total Protein 6.5 G/DL Albumin 3.2 G/DL Globulin 3.3 G/DL Albumin/Globulin Ratio 1.0 Chemistry Comments *Problems/Diagnosis: (1) Acute on chronic diastolic heart failure Status: Acute (2) Edema of lower extremity Status: Acute Total Time Spent on D/C: > 30 Minutes Date of Service: Nov 14, 2024 Billing Provider: MAURICIO VARGAS MD Common Visit Codes: 69321-RIH/OBS DISCH DAY >30min MERRICK DANIELLE RES Nov 14, 2024 18:28 MAURICIO VARGAS MD Nov 15, 2024 08:00
== END 2024-11-14 13:05 | disposition home or self-care (01) | DRG 293 ==
LOC: ER 11:57 → ED HOLD 15:37 → PCU 3S 21:58
PROVIDERS: ADMIT Internal Medicine; ATTEND Internal Medicine
DX: I50.33 Acute on chronic diastolic (congestive) heart failure (principal); N18.30 Chronic kidney disease, stage 3 unspecified; I48.91 Unspecified atrial fibrillation; E11.22 Type 2 diabetes mellitus with diabetic chronic kidney disease; Z79.01 Long term (current) use of anticoagulants; Z79.82 Long term (current) use of aspirin; Z79.899 Other long term (current) drug therapy; Z87.891 Personal history of nicotine dependence
CPT/HCPCS: 36415; 71045; 80048; 80053; 81003; 82948; 83036; 83735; 83880; 84100; 84484; 85025; 86704; 86705; 87081; 87340; 93005; 93306; 94760; 96374; 99285; G0378; J1815; J1938; J1940

== ENCOUNTER 2024-12-12 10:21 | Outpatient (CLI) | payer MEDICARE, BC ==
[~2024-12-12 10:21] MED LIST changes: -ALBU8HFA INH; -ASPI-1397 PO; +BUME1TAB9 PO; -CARSR60C PO; -GUAI600T45 PO; +LANTUS SQ; +METO-395 PO; -PRED20TA PO; -PRED50TA PO; -ROSU10TA72 PO; -ROSU40TA PO; +ROSU40TA89 PO; -SALM50DI2 INH; -TIOT4MIS8
[2024-12-12 11:01] LABS: MEAN PLATELET VOLUME 6.9 FL (7.4-10.4); RED CELL DISTRIBUTION WIDTH 19.6 % (11.5-14.5)
[2024-12-12 11:15] LABS: INR 1.2 INR
[2024-12-12 11:18] LABS: PLATELET ESTIMATE NORMAL
[2024-12-12 11:19] LABS: ELLIPTOCYTES 1+
[2024-12-12 11:21] LABS: CHOL/HDL RATIO 2.3 (0.00-4.99); CREATININE 1.39 MG/DL (0.60-1.10); LDL CHOLESTEROL 59 MG/DL (50-100); TOTAL CARBON DIOXIDE 22.7 MMOL/L (24-32); eGFR 49 ML/MIN
[2024-12-12 11:35] LABS: APTT 28 SECONDS (22-32)
== END 2024-12-12 23:59 | disposition home or self-care (01) ==
LOC: LAB 10:21 → EDSTATUS 12-14 14:00
PROVIDERS: ATTEND Student in an Organized Health Care Education/Training Program
DX: I10 Essential (primary) hypertension (principal); I48.91 Unspecified atrial fibrillation; E78.5 Hyperlipidemia, unspecified
CPT/HCPCS: 36415; 80048; 80061; 83695; 85008; 85025; 85610; 85730

== ENCOUNTER 2025-01-01 11:27 | Outpatient (CLI) | payer MEDICARE, BC ==
[2025-01-01 12:14] LABS: CREATININE 1.43 MG/DL (0.60-1.10); PRO BRAIN NATRIURETIC PEPTIDE 1929 PG/ML (0-450); TOTAL CARBON DIOXIDE 28.9 MMOL/L (24-32); eGFR 48 ML/MIN
== END 2025-01-01 23:59 | disposition home or self-care (01) ==
LOC: LAB 11:27
PROVIDERS: ATTEND Family Medicine
DX: I50.9 Heart failure, unspecified (principal)
CPT/HCPCS: 36415; 80048; 83880; 85379

== ENCOUNTER 2025-01-23 10:14 | Outpatient (CLI) | payer MEDICARE, BC ==
[2025-01-23 11:30] LABS: CREATININE 1.48 MG/DL (0.60-1.10); PRO BRAIN NATRIURETIC PEPTIDE 729 PG/ML (0-450); TOTAL CARBON DIOXIDE 28.8 MMOL/L (24-32); eGFR 46 ML/MIN
== END 2025-01-23 23:59 | disposition home or self-care (01) ==
LOC: RAD 10:14
PROVIDERS: ATTEND Family Medicine
DX: I50.32 Chronic diastolic (congestive) heart failure (principal); N18.31 Chronic kidney disease, stage 3a
CPT/HCPCS: 36415; 80048; 83880; 85379

== ENCOUNTER 2025-03-21 11:42 | Outpatient (CLI) | payer MEDICARE, BC ==
[~2025-03-21 11:42] MED LIST changes: +BUME1TAB8 PO; -BUME1TAB9 PO; +INSU100I8 SQ; +MULT-1172 PO; +OMEP40CA21 PO; -PANT40TA54 PO
[2025-03-21 12:28] LABS: MEAN PLATELET VOLUME 6.3 FL (7.4-10.4); RED CELL DISTRIBUTION WIDTH 17.3 % (11.5-14.5)
[2025-03-21 12:44] LABS: % IRON SATURATION 4 % (11-46)
[2025-03-21 12:56] LABS: CREATININE 1.57 MG/DL (0.60-1.10); TOTAL CARBON DIOXIDE 31.4 MMOL/L (24-32); eGFR 43 ML/MIN
== END 2025-03-21 23:59 | disposition home or self-care (01) ==
LOC: RAD 11:42
PROVIDERS: ATTEND Nurse Practitioner Family
DX: I13.0 Hypertensive heart and chronic kidney disease with heart failure and stage 1 through stage 4 chronic kidney disease, or unspecified chronic kidney disease (principal); E11.22 Type 2 diabetes mellitus with diabetic chronic kidney disease; N18.32 Chronic kidney disease, stage 3b; I50.9 Heart failure, unspecified; R79.89 Other specified abnormal findings of blood chemistry; R25.2 Cramp and spasm; D63.1 Anemia in chronic kidney disease
CPT/HCPCS: 36415; 80053; 82728; 83540; 83550; 83735; 85025; 85379

== ENCOUNTER 2025-04-12 12:50 | Outpatient (CLI) | payer MEDICARE, BC ==
[2025-04-12 13:58] LABS: MEAN PLATELET VOLUME 6.4 FL (7.4-10.4); RED CELL DISTRIBUTION WIDTH 17.1 % (11.5-14.5)
[2025-04-12 15:05] LABS: LYMPHOCYTES % (MANUAL) 22.0 % (21-51); MONOCYTES % (MANUAL) 9.0 % (2-12); NEUTROPHILS % (MANUAL) 69.0 % (42-75); PLATELET ESTIMATE NORMAL
[2025-04-12 15:06] LABS: ELLIPTOCYTES 1+
== END 2025-04-12 23:59 | disposition home or self-care (01) ==
LOC: LAB 12:50
PROVIDERS: ATTEND Nurse Practitioner Family
DX: N18.32 Chronic kidney disease, stage 3b (principal); E83.41 Hypermagnesemia; D64.9 Anemia, unspecified
CPT/HCPCS: 36415; 83735; 85007; 85025